=== PATIENT | female | born 2000 | race Caucasian/White ===

== ENCOUNTER 2024-03-06 18:08 | Emergency (ER) | payer OTHER, MEDICAID, SELFPAY ==
[2024-03-06 18:10] VITALS: BP 126/84; PULSE 98; RESP 18; TEMP 36.4; O2SAT 98; BMI 28.4
--- NOTE | 2024-03-06 19:09 | EX.ED.UPPERE ---
HPI History of Present Illness HPI Narrative: Patient presents with laceration to her left thumb that occurred today. 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 Patient states her pain is worse with any palpation or movement. Patient states it is better with rest. Patient describes it as aching. Patient denies any paresthesias or weakness. Patient states her last tetanus was 4 years ago. Patient denies any other injuries. Chief Complaint: Laceration Informant: patient Occured/Mechanism Comment: Cut with a knife Onset/Context/Timing Onset: Today Context: Sudden Onset Timing: Continuous Quality of Pain: Dull Location: Left thumb Worsened by: Palpation, movement Relieved by: Rest Associated Symptoms Associated Symptoms: Negative for Parasthesia, Weakness or Loss of Funtion Narrative Tetanus Immunization: <5 years PFSH PFSH Medical History no medical history no medical history Allergy/AdvReac Type Severity Reaction Status Date / Time No Known Allergies Allergy Verified 03/06/24 18:10 Family History no significant family his Surgical History no surgical history no surgical history Social History Smoking Status: Never smoker ROS ROS ED Constitutional Constitutional ED: Denies chills or fever(s) Eyes Eyes: Denies blurry vision or change in vision ENT ENT ED: Denies rhinorrhea or sore throat Cardiovascular Cardiovascular: Denies chest pain or palpitations Respiratory/Chest Respiratory/Chest: Denies cough or dyspnea Gastrointestinal Gastrointestinal: Denies nausea or vomiting Genitourinary Genitourinary ED: Denies dysuria or hematuria Musculoskeletal Musculoskeletal: Denies back pain or neck pain Integumentary Denies abscess or rash Neurologic Neurologic: Reports headache(s); Denies weakness Allergic/Immunologic Allergic/Immunologic ED: Denies mouth swelling or urticaria EXAM Physical Exam Const Vital Signs: 03/06/24 18:10 Temperature 97.5 F L Temperature Source Temporal Pulse Rate 98 Respiratory Rate 18 Blood Pressure 126/84 H Blood Pressure Mean 98 Pulse Ox 98 Oxygen Delivery Method Room Air Positive well nourished and well developed General Appearance ED: well developed and NAD HEENT Reports moist mucous membranes Neck full ROM and supple Extremity Extremity Narrative: There is a 1 cm diameter avulsion laceration of the ulnar aspect of the tip of the distal phalanx of the left thumb. There is mild bleeding. There is no foreign body noted. There is no surrounding erythema. Sensation was intact to light touch in all digits. Capillary refills less than 2 seconds in all digits. Strength is 5/5 in flexion and extension of the IP and MP joints of the left thumb. Neuro oriented x3, CN's II-XII intact bilaterally, moves all extremities, no focal motor deficits and no sensory deficits noted Sensorium / Orientation: alert Motor Exam: strength 5/5 throughout Psych mental status grossly normal MDM MDM MDM Narrative Medical decision making narrative: Patient was advised that this is an avulsion laceration. Patient was advised that it does not need to be surgically repaired at this time. Patient was advised that the flap of skin that is loosely attached will eventually fall off. Patient was instructed to keep the wound clean and dry. Bacitracin dressing was applied. Patient was instructed to follow-up with her primary care physician or [employer]. in 5 to 7 days. Patient understood and was agreeable with plan. All questions were answered. Discharge Plan Triage Chief Complaint: Laceration ED Provider: Roberto Kidd Dx/Rx/DC Orders Clinical Impression: Avulsion of skin of left thumb Instructions: ED Skin Tear (Skin Avulsion) Primary Care Provider: Care Physician,No Primary Referrals: Care Physician,No Primary [Primary Care Provider] - Clinic,NOW [Non-Staff] - 5-7 Days Print Language: Portuguese Disposition Disposition: Home, Self Care
== END 2024-03-06 19:38 | disposition home or self-care (01) ==
PROVIDERS: Emergency Provider Emergency Medicine; Visit Provider Emergency Medicine
DX: S61.012A Laceration without foreign body of left thumb without damage to nail, initial encounter (principal); W26.0XXA Contact with knife, initial encounter
CPT/HCPCS: 99282

== ENCOUNTER 2024-06-11 20:16 | Emergency (ER) | payer OTHER, MEDICAID, SELFPAY ==
[2024-06-11 20:17] VITALS: BP 123/84; PULSE 114; RESP 16; TEMP 37.1; O2SAT 100; BMI 27.2
--- NOTE | 2024-06-11 20:33 | RAD_ITS ---
EXAM: XR LEFT HAND COMPLETE, 3 OR MORE VIEWS CLINICAL INDICATION: LACERATION TECHNIQUE: Frontal, lateral and oblique views of the left hand. COMPARISON: No relevant prior studies available. FINDINGS: BONES/JOINTS: No significant abnormality. No acute fracture. No subluxation. Normal alignment. Preservation of the joint space. No sclerotic or destructive changes observed. SOFT TISSUES: Soft tissue swelling of the first digit. No radiopaque foreign body. RAD/Hand Min 3 Views IMPRESSION: Soft tissue swelling of the first digit. No foreign body or fracture. Electronically Signed: Sudhir Collins DO at 20:55 EST ,
--- NOTE | 2024-06-11 23:14 | EX.ED.DYSGE1 ---
HPI History of Present Illness Chief Complaint: Laceration Informant: patient Narrative Narrative: Patient is a 24-year-old female with past medical history of anxiety and depression. She is right-hand dominant. She states that roughly 2 to 3 hours prior to arrival she was at work and she was cutting cilantro when she excellently cut her left thumb. She denies any numbness tingling or weakness. She denies any history of bleeding disorder. She states she is unsure of her tetanus status. However with concern for underlying bony injury or need for potential closure she presents for evaluation [facility] Medical History (Updated 06/12/24 @ 06:[address] Elias Bare, ) Depression Anxiety Home Medications ?Medication ?Instructions ?Recorded ?Last Taken ?Type amoxicillin 500 mg tablet 500 mg PO TID #30 tabs 05/13/24 Unknown Rx atomoxetine 10 mg capsule mg PO 05/13/24 Unknown History bupropion HCl 150 mg 24 hr tablet, 150 mg PO QDAY 05/13/24 Unknown History extended release bupropion HCl 300 mg 24 hr tablet, 300 mg PO QDAY 05/13/24 Unknown History extended release hydroxyzine HCl 25 mg tablet 25 mg PO QDAY 05/13/24 Unknown History venlafaxine 25 mg tablet mg PO 05/13/24 Unknown History Allergy/AdvReac Type Severity Reaction Status Date / Time Food Allergies: Uncoded Allergy other Verified 06/11/24 20:17 Social History Smoking Status: Never smoker [facility] ED Constitutional Constitutional ED: Denies chills or fever(s) ENT ENT ED: Denies sore throat Cardiovascular Cardiovascular: Denies chest pain Respiratory/Chest Respiratory/Chest: Denies cough or dyspnea Gastrointestinal Gastrointestinal: Denies abdominal pain, diarrhea, nausea or vomiting Genitourinary Genitourinary ED: Denies dysuria Musculoskeletal Musculoskeletal: Reports other Details: Positive left thumb pain Integumentary Reports other Details: Positive left thumb laceration ; Denies rash Neurologic Neurologic: Denies headache(s), paresthesias or weakness Psychiatric Psychiatric: Reports anxiety and depression Hematologic/Lymphatic Hematologic/Lymphatic: Denies easy bleeding or easy bruising EXAM Physical Exam Const Vital Signs: 06/11/24 20:17 Temperature 98.8 F Temperature Source Oral Pulse Rate 114 H Respiratory Rate 16 Blood Pressure 123/84 H Blood Pressure Mean 97 Pulse Ox 100 Oxygen Delivery Method Room Air Positive well nourished and well developed General Appearance ED: well developed; Negative for pallor HEENT HEENT Narrative: Normocephalic atraumatic Eyes PERRL and EOMs intact bilaterally General Eye ED: Negative for scleral icterus Neck supple Resp normal respiratory effort and clear to auscultation bilaterally Cardio regular rate and regular rhythm Extremity Extremity Narrative: Left upper extremity is neurovascularly intact; AIN/PIN are intact and normal. Patient has full active range of motion. There is a curved linear laceration that is subcutaneous layer deep to the distal aspect of the left thumb roughly 2 cm in length with slight involvement of the lateral nailbed. No active bleeding noted. No foreign body. No subungual hematoma. No ligamentous or tendon injury Remainder of the exam is normal Neuro oriented x3, CN's II-XII intact bilaterally and no sensory deficits noted Sensorium / Orientation: alert Motor Exam: strength 5/5 throughout Psych mental status grossly normal Skin no rashes or lesions noted Skin Narrative: Laceration to the left thumb as documented above General Skin Exam: Negative for jaundice or pallor MDM MDM MDM Narrative Medical decision making narrative: Patient arrived to the ER with stable vitals and reported a simple laceration to her left thumb. In order to ensure there is no bony injury or retained foreign body an x-ray was obtained. This revealed no acute findings. We discussed updating the patient's tetanus status as she was unsure of this but concern for tetanus from a clean kitchen knife is low and she does not want the injection provided. The patient was not having active bleeding the wound was linear and well-approximated and therefore decision was made to close the wound with Dermabond. As wound is now been closed and there is no overt signs of infection and she is neurovascular intact without ligamentous or tendon injury there is no need for further workup and she is otherwise safe for discharge Patient had the left thumb cleaned with chlorhexidine. Manual pressure was applied to the wound edges and they came together well with good approximation. Dermabond was placed over top the wound and held together the wound well. Patient tolerated procedure well without complication History & Record Review Discussion w/independent historian: Patient Radiography Diagnostic Testing: Clinical Impression(s) from Imaging Studies Hand X-Ray 06/11/24 20:33 IMPRESSION: Soft tissue swelling of the first digit. No foreign body or fracture. Electronically Signed: Sudhir Collins, at 20:55 EST , X-ray of the left hand as interpreted by the emergency medicine physician reveals no acute fracture dislocation or retained foreign body Discharge Plan Triage Chief Complaint: Laceration ED Provider: Elias Baer Dx/Rx/DC Orders Clinical Impression: Laceration of left thumb with damage to nail, Anxiety and depression Prescriptions: No Action bupropion HCl 300 mg tablet extended release 24 hr 300 mg PO QDAY bupropion HCl 150 mg tablet extended release 24 hr 150 mg PO QDAY venlafaxine 25 mg tablet PO hydroxyzine HCl 25 mg tablet 25 mg PO QDAY atomoxetine 10 mg capsule PO amoxicillin 500 mg tablet 500 mg PO TID Qty: 30 0RF Primary Care Provider: Care Physician,No Primary Referrals: Corporate,Care [Group of Physicians] - Care Physician,No Primary [Primary Care Provider] - Print Language: Albanian Disposition Disposition: Home, Self Care Discharge Date/Time: 06/11/24 23:27
== END 2024-06-11 23:27 | disposition home or self-care (01) ==
LOC: ED 23:21
PROVIDERS: Emergency Provider Emergency Medicine; Visit Provider Emergency Medicine
DX: S61.112A Laceration without foreign body of left thumb with damage to nail, initial encounter (principal); F41.9 Anxiety disorder, unspecified; Y99.0 Civilian activity done for income or pay; F32.A Depression, unspecified; W26.8XXA Contact with other sharp object(s), not elsewhere classified, initial encounter
CPT/HCPCS: 12001; 73130; 99282